=== PATIENT | female | born 1935 | race Caucasian/White ===

== ENCOUNTER 2024-07-06 13:14 | Observation (INO) ==
--- NOTE | 2024-07-06 13:59 | XRay Report ---
XR chest 1V portable CLINICAL HISTORY: Syncope. COMPARISON STUDY: Chest radiograph May 09, 2013. FINDINGS: Left shoulder arthroplasty is incidentally noted. There is no pneumothorax or pleural effus ion. There is moderate cardiomegaly and a large hiatal hernia. There is no radiographic evidence for pulmonary edema. Linear bibasilar densities favor atelectasis. There are several old right-sided rib fractures. IMPRESSION: 1. Cardiomegaly without radiographic evidence for pulmonary edema. 2. No pneumothorax. 3. Large hiatal hernia. ACT 112: Negative or not required by law. Electronically signed by: Ayan Clinton M.D. 07/06/2024 1:58 PM
--- NOTE | 2024-07-06 14:24 | Emergency Department Note ---
Impression & Plan Syncope and collapse, Elevated brain natriuretic peptide (BNP) level, Pulmonary edema ED Provider Note HISTORY OF PRESENT ILLNESS: Patient is an 88-year-old female presenting after her syncopal episodes. Patient was touring apartments at [facility] when she reportedly felt like she was very hot and felt like she had to sit down. It was a new apartment so there was no furniture in the room so the family tried to find a chair and then the patient ended up passing out. Family reports they caught her and lowered her to the ground. Reports that she came to immediately. States that they called 911. Reports the patient was alert during the week for EMS to get there. States that when EMS got her into the chair, the patient took "a loud gasp and her back arched and it seemed like she had a seizure." Reports this episode lasted for about 15 seconds. Patient reportedly has had syncopal episodes in the past. She is on Eliquis for history of A-fib. Denies any DVT, but reports history of PE. She denies any history of cardiac stents. She denies any chest pain or shortness of breath prior to the syncopal episode. On arrival to the ER, the patient reports feeling her normal self. Denies any recent fevers. Denies abdominal pain, nausea or vomiting. Denies any dysuria or hematuria. Patient denies any recent falls or head injuries. Denies any headache, changes vision, numbness or tingling or weakness in her extremities. ROS: as above PHYSICAL EXAM: Constitutional: Patient appears in no acute distress. HENT: Head: Normocephalic and atraumatic. Eyes: EOMI, PERRL Mouth/Throat: Mucous membranes moist. Neck: Trachea midline. Neck supple. Cardiovascular: RRR, No murmurs, rubs or gallops. Intact distal pulses. Pulmonary/Chest: No respiratory distress. Breath sounds clear and equal bilaterally. No wheezes or rales. Abdominal: Abdomen soft, no tenderness, rebound or guarding. Musculoskeletal: No edema, tenderness or deformity noted. Skin: Warm and dry. No rash, erythema, pallor or cyanosis Psychiatric: Appropriate mood and affect for situation. Neurological: Alert and keenly responsive. Facies symmetric. Able to raise eyebrows, close eyes, smile, puff mouth, stick out tongue, move tongue left and right and raise palate symmetrically. Able to shrug shoulders. PERRLA. SILT to forehead below eye and at jawline. Can hear soft noise bilaterally. Strength 5/5 in bilateral upper and lower extremities. SILT throughout bilateral upper and lower extremities. MDM: - Vitals signs showed bradycardia - History obtained via patient. History as above. - Chronic conditions affecting care: HTN; HLD; PE; Afib - Differential diagnoses include, but are not limited to: dysrhythmia; electrolyte abnormality; ACS; pneumonia; CVA; intracranial hemorrhage - Order placed for continuous cardiac monitoring. At this time, monitor showed rate of 54 bpm with normal sinus rhythm, per my interpretation. - External medical records reviewed. - EKG interpreted by myself showed normal sinus rhythm. Rate bradycardic at 48 bpm. QT 538. No acute ischemic changes. - Laboratory workup interpreted by myself showed normal WBC; normal PT/INR; stable electrolytes; normal troponin; elevated BNP (174); normal lipase; normal TSH - CXR showed pulmonary edema, per my interpretation. - CT head wo contrast negative for acute pathology - Discussion was had with patient case coordinator about patient's case and need for admission - Hospitalist, Dr. Sebastian, consulted for admission - [facility] and [facility]. ASSESSMENT AND PLAN: Diagnosis: syncope and collapse; elevated BNP; pulmonary edema Plan: admit Past Med/Surg History Problem List (Updated 07/06/24 @ 16:14 by Debbie Fajardo MD) Pulmonary edema (Acute) Elevated brain natriuretic peptide (BNP) level (Acute) Syncope and collapse (Acute) Social History Smoking Status: Former smoker Preferred Language: Lithuanian Feels Safe at Home: Yes Allergies Allergies Allergy/AdvReac Type Severity Reaction Status Date / Time No Known Allergies Allergy Unverified 05/09/13 06:17 Home Meds Home Medications Medication Instructions Recorded Confirmed alendronate 70 mg tablet (Fosamax) 70 mg PO WK 07/06/24 07/06/24 apixaban 2.5 mg tablet (Eliquis) 2.5 mg PO BID 07/06/24 07/06/24 atorvastatin 40 mg tablet 40 mg PO HS 07/06/24 07/06/24 donepezil 10 mg tablet 10 mg PO HS 07/06/24 07/06/24 hydrochlorothiazide 12.5 mg capsule 12.5 mg PO DAILY 07/06/24 07/06/24 levothyroxine 100 mcg tablet 100 mcg PO DIRECTED 07/06/24 07/06/24 levothyroxine 50 mcg tablet 50 mcg PO DIRECTED 07/06/24 07/06/24 Results & Data (ED) Vital Signs Vital Signs - 24 hr 07/06/24 13:46 07/06/24 14:02 07/06/24 14:26 Temperature 36.3 C L Temperature Source Temporal Artery Scan Pulse Rate - Lying Pulse Rate - Sitting Pulse Rate - Standing Pulse Rate 52 L 75 Pulse Rhythm Regular Pulse Strength Normal Respiratory Rate 18 Respiratory Effort / Characteristics Non-Labored Respiratory Depth Normal Respiratory Pattern Regular Blood Pressure - Lying Blood Pressure - Sitting Blood Pressure- Standing Blood Pressure 132/70 Blood Pressure Mean 90 Blood Pressure Position Lying Pulse Oximetry 100 Oxygen Delivery Method Room Air Sepsis Recent Fever Within 48 Hours No Sepsis New/Unexplained Change in Mental Status N/A Sepsis Action Taken by Nursing No Action Required 07/06/24 15:21 07/06/24 15:21 07/06/24 15:32 Temperature Temperature Source Pulse Rate - Lying 71 Pulse Rate - Sitting 84 Pulse Rate - Standing 109 H Pulse Rate 64 Pulse Rhythm Irregular Pulse Strength Respiratory Rate 16 Respiratory Effort / Characteristics Respiratory Depth Respiratory Pattern Blood Pressure - Lying 122/44 L Blood Pressure - Sitting 121/83 Blood Pressure- Standing 113/91 Blood Pressure Blood Pressure Mean Blood Pressure Position Pulse Oximetry 99 99 Oxygen Delivery Method Room Air Room Air Sepsis Recent Fever Within 48 Hours Sepsis New/Unexplained Change in Mental Status Sepsis Action Taken by Nursing Laboratory Data 07/06/24 14:00 07/06/24 14:00 Lab Results 07/06/24 Range/Units 14:00 WBC 6.12 (4.8-10.8) K/ul RBC 4.67 (4.20-5.40) M/uL Hgb 13.4 (12.0-16.0) g/dl Hct 41.4 (37.0-47.0) % MCV 88.7 (80.0-100.0) fL MCH 28.7 (25.0-34.0) pg MCHC 32.4 (32.0-36.0) g/dL RDW Std Deviation 42.6 (36.4-46.3) fL RDW Coeff of Hector 13.2 (11.5-14.5) % Plt Count 143 (130-400) K/uL MPV 11.1 (9.4-12.4) fL Immature Gran % (Auto) 0.2 % Neut % (Auto) 66.3 % Lymph % (Auto) 27.5 % [place] % (Auto) 5.2 % Eos % (Auto) 0.5 % Baso % (Auto) 0.3 % Neut # (Auto) 4.06 (1.40-6.50) K/uL Lymph # (Auto) 1.68 (1.20-3.40) K/uL [place] # (Auto) 0.32 (0.11-0.59) K/uL Eos # (Auto) 0.03 (0.00-0.50) K/uL Baso # (Auto) 0.02 (0.00-0.20) K/uL Immature Gran # (Auto) 0.01 (0.01-0.20) K/uL PT 11.8 (9.0-12.0) Seconds INR 1.1 (0.9-1.1) Sodium 143 (136-145) mmol/L Potassium 3.8 (3.5-5.1) mmol/L Chloride 106 (98-107) mmol/L Carbon Dioxide 27 (21-32) mmol/L Anion Gap 10 (3-11) BUN 24 H (6-23) mg/dl Creatinine 0.88 (0.6-1.2) mg/dl Est Cr Clr Drug Dosing 38.9 ml/min eGFR 63.57 BUN/Creatinine Ratio 27.3 H (10-20) Glucose 157 H (70-99(Fasting)) mg/dl Calcium 8.9 (8.6-10.3) mg/dl Magnesium 1.7 (1.7-2.4) mg/dl Total Bilirubin 0.6 (0.2-1.0) mg/dl AST 21 (13-39) U/L ALT 18 (7-52) U/L Alkaline Phosphatase 106 H (34-104) U/L Troponin I High Sens 6.4 (0-14) pg/ml B-Natriuretic Peptide 174 H (0-100) pg/ml Total Protein 6.4 (6.0-8.3) gm/dl Albumin 3.8 (3.4-5.0) gm/dl Globulin 2.6 (2.5-4.0) gm/dl Albumin/Globulin Ratio 1.5 (0.9-2) Lipase 23 (11-82) U/L TSH 3.672 (0.300-4.500) uIu/ml Imaging Data Radiologist's Impression: Chest X-Ray 07/06/24 13:27 XR chest 1V portable CLINICAL HISTORY: Syncope. COMPARISON STUDY: Chest radiograph May 09, 2013. FINDINGS: Left shoulder arthroplasty is incidentally noted. There is no pneumothorax or pleural effusion. There is moderate cardiomegaly and a large hiatal hernia. There is no radiographic evidence for pulmonary edema. Linear bibasilar densities favor atelectasis. There are several old right-sided rib fractures. IMPRESSION: 1. Cardiomegaly without radiographic evidence for pulmonary edema. 2. No pneumothorax. 3. Large hiatal hernia. ACT 112: Negative or not required by law. Electronically signed by: Ayan Clinton M.D. 07/06/2024 1:[address] 07/06/24 14:21 EXAM:CT Head Without Intravenous Contrast INDICATION: Syncope TECHNIQUE: Axial computed tomography images of the head/brain without intravenous contrast. Sagittal and/or coronal reformats are provided. Sagittal and coronal reformatted images were created and reviewed. This CT exam was performed using one or more of the following dose reduction techniques: automated exposure control, adjustment of the mA and/or kV according to patient size, and/or use of iterative reconstruction technique. COMPARISON: No relevant prior studies available. FINDINGS: Limitations: None. Brain and extra-axial spaces: There is age appropriate cortical atrophy and chronic ischemic periventricular white matter hypodensity. No acute infarct, hemorrhage or mass noted. Bones/joints: No acute changes. Soft tissues: No significant abnormality noted. Vasculature: There is minimal atherosclerotic plaque in the intracranial vertebral and carotid arteries. Sinuses: No layering fluid in the visualized portions of the paranasal sinuses. Mastoid air cells: No mastoid effusion. Orbits: No significant abnormality noted. IMPRESSION: Cerebral atrophy. No acute changes. ACT 112: Negative or not required by law. Electronically signed by Khushi Jane 07-06-2024 3:44 PM Discharge Plan Visit Data Chief Complaint: Syncope Stated Complaint: SYNCOPE ED Provider: Debbie Fajardo Discharge Problem: Syncope and collapse, Elevated brain natriuretic peptide (BNP) level, Pulmonary edema Forms Stand Alone Forms: My [facility] Prescriptions Prescriptions: No Action atorvastatin 40 mg Tablet 40 mg PO HS donepezil 10 mg Tablet 10 mg PO HS alendronate [Fosamax] 70 mg Tablet 70 mg PO WK levothyroxine 100 mcg Tablet 100 mcg PO DIRECTED Rx Instructions: everyday but sundays levothyroxine 50 mcg Tablet 50 mcg PO DIRECTED Rx Instructions: Sundays hydrochlorothiazide 12.5 mg Capsule 12.5 mg PO DAILY Eliquis 2.5 mg Tablet 2.5 mg PO BID Referrals Referrals: PCP,NO [Primary Care Provider] -
[2024-07-06 14:26] LABS: Basophils # (auto) 0.02 K/uL (0.00-0.20); Basophils % (auto) 0.3 %; Eosinophils # (auto) 0.03 K/uL (0.00-0.50); Eosinophils % (auto) 0.5 %; Hematocrit (blood only) 41.4 % (37.0-47.0); Hemoglobin 13.4 g/dl (12.0-16.0); Immature Granulocytes # (auto) 0.01 K/uL (0.01-0.20); Immature Granulocytes % (auto) 0.2 %; Lymphocytes # (auto) 1.68 K/uL (1.20-3.40); Lymphocytes % (auto) 27.5 %; Mean Corpuscular Hemoglobin 28.7 pg (25.0-34.0); Mean Corpuscular Hgb Conc 32.4 g/dL (32.0-36.0); Mean Corpuscular Volume 88.7 fL (80.0-100.0); Mean Platelet Volume 11.1 fL (9.4-12.4); Monocytes # (auto) 0.32 K/uL (0.11-0.59); Monocytes % (auto) 5.2 %; Neutrophils # (auto) 4.06 K/uL (1.40-6.50); Neutrophils % (auto) 66.3 %; Platelet Count 143 K/uL (130-400); RDW Coefficient of Variation 13.2 % (11.5-14.5); RDW Standard Deviation 42.6 fL (36.4-46.3); Red Blood Count 4.67 M/uL (4.20-5.40); White Blood Count 6.12 K/ul (4.8-10.8)
[2024-07-06 14:40] LABS: Albumin Globulin Ratio 1.5 (0.9-2); Albumin Level 3.8 gm/dl (3.4-5.0); BUN Creatinine Ratio 27.3 (10-20); Bilirubin,Total 0.6 mg/dl (0.2-1.0); Calcium 8.9 mg/dl (8.6-10.3); Creatinine Clr Calc Pharmacy 38.9 ml/min; Globulin 2.6 gm/dl (2.5-4.0); Magnesium 1.7 mg/dl (1.7-2.4); Potassium 3.8 mmol/L (3.5-5.1); Total Protein 6.4 gm/dl (6.0-8.3)
[2024-07-06 14:46] LABS: Troponin I High Sensitivity 6.4 pg/ml (0-14)
[2024-07-06 14:47] LABS: INR 1.1 (0.9-1.1); Prothrombin Time 11.8 Seconds (9.0-12.0)
[2024-07-06 14:55] LABS: Thyroid Stimulating Hormone 3.672 uIu/ml (0.300-4.500)
--- NOTE | 2024-07-06 15:44 | CT Scan Report ---
EXAM:CT Head Without Intravenous Contrast INDICATION: Syncope TECHNIQUE: Axial computed tomography images of the head/brain without intravenous contrast. Sagittal and/or coronal reformats are provided. Sagittal and coronal reformatted images were created and reviewed. This CT exam was performed using one or more of the following dose reduction techniques: automated exposure control, adjustment of the mA and/or kV according to patient size, and/or use of iterative reconstruction technique. COMPARISON: No relevant prior studies available. FINDINGS: Limitations: None. Brain and extra-axial spaces: There is age appropriate cortical atrophy and chronic ischemic periventricular white matter hypodensity. No acute infarct, hemorrhage or mass noted. Bones/joints: No acute changes. Soft tissues: No significant abnormality noted. Vasculature: There is minimal atherosclerotic plaque in the intracranial vertebral and carotid arteries. Sinuses: No layering fluid in the visualized portions of the paranasal sinuses. Mastoid air cells: No mastoid effusion. Orbits: No significant abnormality noted. IMPRESSION: Cerebral atrophy. No acute changes. ACT 112: Negative or not required by law. Electronically signed by Khushi Jane 07-06-2024 3:44 PM
--- NOTE | 2024-07-06 16:50 | History & Physical Report ---
Date of Service July 06, 2024 Assessment & Plan (1) Syncope and collapse: Plan: Patient with syncopal episode while touring apartment (standing for long period of time) with 15 second head jerking movements, recent poor PO intake secondary to delayed orthostatic hypotension - EKG showed Sinus bradycardia, HR 48 - Lactate, prolactin, and troponin negative - CT head negative - orthostatic VS confirmed mild orthostatic hypotension - likely secondary to dehydration - will promote PO fluids - Monitor on telemetry overnight questionable seizure: given history, Negative lactate, and negative prolactin - will defer seizure workup at this time. (2) Dehydration: Plan: patient with poor p.o. intake and syncopal episode - BUN/Cr elevated on admission (27.3) - promote oral fluid intake (3) Elevated brain natriuretic peptide (BNP) level: Plan: patient denies history of CHF - BNP mildly elevated at 174 - CXR showed cardiomegaly but no pulmonary edema - monitor on telemetry although likely nonspecific and nonconcerning at this time (4) Paroxysmal atrial fibrillation: Plan: patient with history of paroxysmal A-fib on Eliquis - EKG on admission showed sinus bradycardia - continue home Eliquis - Monitor on telemetry Plan Chronic stable diagnoses: HLD - continue statin hypothyroidism - continue home levothyroxine; TSH WNL on admission chronic edema - continue home HCTZ VTE ppx: SCDS Diet: heart heathy Code status: DNR/DNI Dispo: Med/tele Admission and Anticipated Discharge Date Admission Date: 07/06/24 History of Present Illness Chief Complaint: Syncope Primary Care Provider: NO PCP Patient is a 88 -year-old female with a past medical history of A-fib on Eliquis, hypothyroidism, hyperlipidemia, LE edema. She presents today after a syncopal episode while touring [employer]. As per the patient's family she only had orange juice into "sticky's'' for breakfast. She then went straight to this apartment tour in which she was standing up and walking around for about an hour. She had on multiple layers including a turn on a, sweater, and when her jacket. She then began to feel hot, they were touring an empty apartment so there were no chairs around. When her son went to look for a chair he came back and she had collapsed and her [id number]'s arms. They slowly lowered her to the floor, no head trauma. They stated that she felt cool and clammy at this time. When they tried to sit her back up she had a 15-second episode where her head was shaking, but no flailing. Her family stated that this has happened in the past whenever she was stressed. The patient stated that she only drinks 2 small bottles of water a day, with a a lot of soda. She feels that she should probably drink more water. She has had syncopal episodes in the past due to dehydration. She denies feeling heart palpitations, dyspnea, chest pain prior to the syncopal episode. She denies history of previous seizure like activity. Patient endorses lower extremity edema, chronic, takes hydrochlorothiazide at home. Patient denies fever, chills, headache, dizziness, lightheadedness, vision changes, dyspnea, dyspnea on exertion, chest pain, abdominal pain, nausea, vomiting, diarrhea, numbness, tingling. Patient currently resides near [place], [place], she was touring [facility] to be closer to family. She has a wonderful support system and family to check in on her frequently. She denies current nicotine or chronic alcohol use. She lives at home with her . She denies past history of diabetes, VTE, current cancer. She does not use oxygen at baseline. She has a DNR/DNI status. Patient and her family updated at bedside regarding current medical condition and treatment plan. The patient was discussed with Dr. Sebastian at the time of the admission/consult. Allergies Allergy/AdvReac Type Severity Reaction Status Date / Time No Known Allergies Allergy Unverified 05/09/13 06:17 Home Medications Medication Instructions Recorded Confirmed Type alendronate 70 mg tablet (Fosamax) 70 mg PO WK 07/06/24 07/06/24 History apixaban 2.5 mg tablet (Eliquis) 2.5 mg PO BID 07/06/24 07/06/24 History atorvastatin 40 mg tablet 40 mg PO HS 07/06/24 07/06/24 History donepezil 10 mg tablet 10 mg PO HS 07/06/24 07/06/24 History hydrochlorothiazide 12.5 mg capsule 12.5 mg PO DAILY 07/06/24 07/06/24 History levothyroxine 100 mcg tablet 100 mcg PO DIRECTED 07/06/24 07/06/24 History levothyroxine 50 mcg tablet 50 mcg PO DIRECTED 07/06/24 07/06/24 History Past Med/Surg History Problem List (Updated 07/06/24 @ 17:13 by Clementina Nelson PA-C) Paroxysmal atrial fibrillation Dehydration Pulmonary edema (Acute) Elevated brain natriuretic peptide (BNP) level (Acute) Syncope and collapse (Acute) Social History Smoking Status: Former smoker Preferred Language: Paraguayan Feels Safe at Home: Yes Review of Systems Review of Systems: see HPI Physical Exam Physical Exam: The patient is awake, alert and oriented 3, well developed and well nourished, normocephalic and atraumatic, in no acute distress. Non-toxic appearing. HEENT- EOMI, mucous membranes dry. Hearing grossly intact. Heart-normal S1 and S2. No murmurs, rubs or gallops. Lungs-clear bilaterally, no respiratory distress, no accessory muscle use. Abdomen-normal bowel sounds and soft. No ascites noted. Non-tender. Extremities- no clubbing, cyanosis, or edema. Rheumatologic-normal range of motion. Psychiatric-normal affect. Results & Data Results & Data Vital Signs (Past 12 Hours) Vital Signs Temp Pulse Pulse Resp BP BP Pulse Ox 07/06/24 16:00 76 16 114/75 97 07/06/24 15:21 99 07/06/24 15:21 64 16 99 07/06/24 14:26 75 07/06/24 14:02 36.3 C L 07/06/24 13:46 52 L 18 132/70 100 O2 Del Method 07/06/24 16:00 Room Air 07/06/24 15:21 Room Air 07/06/24 15:21 Room Air 07/06/24 14:26 07/06/24 14:02 07/06/24 13:46 Room Air Code Status & VTE Plan Code Status DNR/DNI VTE Prophylaxis Plan VTE Prophylaxis will be ordered: Yes Supervising Physician Co-Signing Physician Notes Patient seen and examined, chart reviewed, case discussed with Clementina Nelson PA-C and I agree with the assessment and plan as above except as otherwise noted Labs and images reviewed Minimal PO intake, was standing at [employer] with 3 sweaters on today when she got lightheaded and dizzy and passed out. Head tilted back prior to when she has had prior syncope from dehydration. No pulm edema. Do not suspect this was seizure. Lactate and Pro-Brian are negative. Suspect that patient had an episode of syncope due to volume contraction and standing for prolonged period of time, do not see evidence of cardiogenic syncope or seizure. Patient is clinically improving with hydration. Did offer return home however patient does not feel comfortable with this at time of evening assessment and would like to be monitored overnight and did have a transient episode of borderline bradycardia while resting although with appropriate chronotropic response. Troponin is normal. Oral fluids encouraged, and work with PT OT and anticipate discharge in the morning. Agree with above. PG Care Time/CCT Total # of Minutes Spent Total Time Spent with Patient: Total time spent is greater than 50% in coordination of care (as documented) at patient's floor/unit and/or counseling patient: Coding Level of Care Code 62345 INT INP/OBS CARE 2/55MIN Diagnoses Syncope and collapse R55 Dehydration E86.0 Elevated brain natriuretic peptide (BNP) level R79.89 Paroxysmal atrial fibrillation I48.0
[2024-07-06] MEDS ORDERED: ACETAMINOPHEN 325 MG TAB PO PRN (18:43)
[2024-07-06] MEDS ORDERED: POLYETHYLENE (MIRALAX) 17 GM PACK PO PRN (18:43)
[2024-07-06 19:44] VITALS: RESP 18
[2024-07-06 20:56] LABS: Appearance Urine Cloudy (Clear); Bacteria Urine Automated 2+ (None Seen); Bilirubin Urine Negative (Negative); Blood Urine Negative (Negative); Color Urine Yellow; Glucose Urine UA Negative (Negative); Ketones Urine Trace (Negative); Leukocyte Esterase Urine 3+ (Negative); Nitrite Urine Negative (Negative); Protein Urine Trace (Negative); Specific Gravity Urine 1.022 (1.000-1.030); Urobilinogen Urine Negative (Negative); WBC Urine Automated >50 /hpf (0-5)
[2024-07-06] MEDS: DONEPEZIL HCL 10 MG TAB PO SCH (21:11)
[2024-07-06] MEDS: APIXABAN 2.5 MG TAB PO SCH (21:11)
[2024-07-06] MEDS: ATORVASTATIN 40 MG TAB PO SCH (21:11)
[2024-07-06] MEDS: SODIUM CHLORIDE 0.9% 500 ML IV ONE (21:52)
[2024-07-07] MEDS: LEVOTHYROXINE SODIUM 100 MCG TABLET PO SCH (05:48)
[2024-07-07 06:31] LABS: Hematocrit (blood only) 32.9 % (37.0-47.0); Hemoglobin 10.8 g/dl (12.0-16.0); Mean Corpuscular Hemoglobin 28.4 pg (25.0-34.0); Mean Corpuscular Hgb Conc 32.8 g/dL (32.0-36.0); Mean Corpuscular Volume 86.6 fL (80.0-100.0); Mean Platelet Volume 11.2 fL (9.4-12.4); Platelet Count 129 K/uL (130-400); White Blood Count 6.67 K/ul (4.8-10.8)
[2024-07-07 06:35] LABS: BUN Creatinine Ratio 26.6 (10-20); Creatinine Clr Calc Pharmacy 43.3 ml/min; Magnesium 1.7 mg/dl (1.7-2.4); Potassium 3.4 mmol/L (3.5-5.1)
[2024-07-07] MEDS: hydroCHLOROthiazide 25 MG TAB PO SCH (07:54)
[2024-07-07] MEDS: POTASSIUM CHLORIDE CRTAB 20 MEQ TABCR PO STA (08:20)
[2024-07-07] MEDS: SODIUM CHLORIDE 0.9% 500 ML IV ONE (11:42)
--- NOTE | 2024-07-07 16:05 | Hospitalist Progress Note ---
Date of Service July 07, 2024 Assessment & Plan (1) Syncope and collapse: Plan: Patient with syncopal episode while touring apartment (standing for long period of time) with 15 second head jerking movements, recent poor PO intake secondary to delayed orthostatic hypotension - EKG showed Sinus bradycardia, HR 48 - Lactate, prolactin, and troponin negative -CBC reviewed 07/07: stable. hgb drop to 10.8, likely dilutional from bolus in ER on 07/06 -BMP reviewed 07/07: K 3.4, creatinine 0.79, BUN 21. s/p 20meq PO potassium. -Urinalysis +, UC pending. defer abx until UC results given patient asymptomatic. - CT head negative - orthostatic VS confirmed mild orthostatic hypotension - likely secondary to dehydration - will promote PO fluids - s/p 500ml bolus 07/07 due to persistent hypotension. BP 88/41 with improvement to 108/61 following bolus. -plan for 1L NSS overnight -PT evaluated - patient safe to return home w/ family support questionable seizure: given history, Negative lactate, and negative prolactin - will defer seizure workup at this time. AM CBC, BMP. (2) Dehydration: Plan: patient with poor p.o. intake and syncopal episode - BUN/Cr elevated on admission (27.3) - promote oral fluid intake (3) Elevated brain natriuretic peptide (BNP) level: Plan: patient denies history of CHF - BNP mildly elevated at 174 - CXR showed cardiomegaly but no pulmonary edema - Echo pending. (4) Paroxysmal atrial fibrillation: Plan: patient with history of paroxysmal A-fib on Eliquis - EKG on admission showed sinus bradycardia - continue home Eliquis - Monitor on telemetry Plan Chronic stable diagnoses: HLD - continue statin hypothyroidism - continue home levothyroxine; TSH WNL on admission chronic edema - continue home HCTZ VTE ppx: SCDS, Home Eliquis. Diet: heart heathy Code status: DNR/DNI Dispo: Med/tele, anticipate discharge 07/07. Updated son at bedside 07/07. Admission and Anticipated Discharge Date Admission Date: July 06, 2024 Subjective Patient seen and examined this morning and afternoon. son at bedside in PM. Patient reports to be feeling okay today. Denies any symptoms. States she is on HCTZ for lower extremity edema. states she has tried compression stockings in past but unsure why she stopped using them. Physical Exam 2 Constitutional: WD/WN, vitals as above Eyes: PERRL, conjunctivae normal, anicteric sclerae Respiratory: normal respiratory effort, lungs clear to auscultation Cardiovascular: RRR, no murmur, no edema Psychiatric: A+Ox3, euthymic affect Results & Data Results & Data Vital Signs (Past 12 Hours) Vital Signs Temp Pulse Pulse Resp BP BP Pulse Ox 07/07/24 15:52 36.3 C L 62 18 108/61 95 07/07/24 10:59 36.8 C 71 18 88/51 L 95 07/07/24 08:16 67 07/07/24 07:29 07/07/24 07:23 36.9 C 81 18 90/44 L 94 O2 Del Method 07/07/24 15:52 Room Air 07/07/24 10:59 Room Air 07/07/24 08:16 07/07/24 07:29 Room Air 07/07/24 07:23 Room Air Laboratory Results 07/07/24 05:36 07/07/24 05:36 PG Care Time/CCT Total # of Minutes Spent Total Time Spent with Patient: Total time spent is greater than 50% in coordination of care (as documented) at patient's floor/unit and/or counseling patient: Coding Level of Care Code 67391 SUB INP/OBS CARE 2/35MIN Diagnoses Syncope and collapse R55 Dehydration E86.0 Elevated brain natriuretic peptide (BNP) level R79.89 Paroxysmal atrial fibrillation I48.0
[2024-07-07] MEDS: SODIUM CHLORIDE 0.9% 1,000 ML IV SCH (16:11)
[2024-07-08 04:19] VITALS: TEMP 97.5
[2024-07-08 06:43] LABS: Hemoglobin 12.2 g/dl (12.0-16.0); Mean Corpuscular Hemoglobin 28.8 pg (25.0-34.0); Mean Corpuscular Volume 87.5 fL (80.0-100.0); Mean Platelet Volume 11.4 fL (9.4-12.4); Platelet Count 131 K/uL (130-400); RDW Coefficient of Variation 13.2 % (11.5-14.5); RDW Standard Deviation 41.5 fL (36.4-46.3); Red Blood Count 4.23 M/uL (4.20-5.40); White Blood Count 6.41 K/ul (4.8-10.8)
[2024-07-08 06:56] LABS: BUN Creatinine Ratio 19.5 (10-20); Calcium 8.4 mg/dl (8.6-10.3); Creatinine Clr Calc Pharmacy 44.4 ml/min; Potassium 3.7 mmol/L (3.5-5.1)
[2024-07-08 07:40] VITALS: PULSE 84; O2SAT 93
[2024-07-08 09:47] VITALS: BP 109/55
--- NOTE | 2024-07-08 09:57 | Discharge Summary ---
Discharge Summary Date of Service July 08, 2024 Principal Dx & Hospital Course #1 = Principal Diagnosis (1) Syncope and collapse: Patient with syncopal episode while touring apartment (standing for long period of time) with 15 second head jerking movements, recent poor PO intake secondary to delayed orthostatic hypotension - EKG showed Sinus bradycardia, HR 48 - Lactate, prolactin, and troponin negative -CBC reviewed 07/08: stable. -BMP reviewed 07/08:stable -Urinalysis +, UC pending. likely asymptomatic bacteruria. Defer abx unless patient develops symptoms. - CT head negative - orthostatic VS confirmed mild orthostatic hypotension - likely secondary to dehydration - will promote PO fluids - s/p 500ml bolus 07/07 due to persistent hypotension. BP 88/41 with improvement to 108/61 following bolus. -s/p 1L NSS w/ improvement of BP to normotensive range. -PT evaluated - patient safe to return home w/ family support questionable seizure: given history, Negative lactate, and negative prolactin - will defer seizure workup at this time. HCTZ stopped on discharge as this can also contribute to dehydration/hypotension and patient has poor PO fluid intake at baseline. patient encouraged to elevate legs to relieve LE edema. - minimal edema on examination. (2) Dehydration: patient with poor p.o. intake and syncopal episode - BUN/Cr elevated on admission (27.3) corrected prior to discharge. - promote oral fluid intake (3) Elevated brain natriuretic peptide (BNP) level: patient denies history of CHF - BNP mildly elevated at 174 - CXR showed cardiomegaly but no pulmonary edema - Echo results pending. -Patient w/o chest pain or shortness of breath. (4) Paroxysmal atrial fibrillation: patient with history of paroxysmal A-fib on Eliquis - EKG on admission showed sinus bradycardia - continue home Eliquis Plan Chronic stable diagnoses: HLD - continue statin hypothyroidism - continue home levothyroxine; TSH WNL on admission Updated son with discharge instructions 07/08. Admission HPI Per Admitting Provider Patient is a 88 -year-old female with a past medical history of A-fib on Eliquis, hypothyroidism, hyperlipidemia, LE edema. She presents today after a syncopal episode while touring [employer]. As per the patient's family she only had orange juice into "sticky's'' for breakfast. She then went straight to this apartment tour in which she was standing up and walking around for about an hour. She had on multiple layers including a turn on a, sweater, and when her jacket. She then began to feel hot, they were touring an empty apartment so there were no chairs around. When her son went to look for a chair he came back and she had collapsed and her yjqajdpa-ij-smj's arms. They slowly lowered her to the floor, no head trauma. They stated that she felt cool and c lammy at this time. When they tried to sit her back up she had a 15-second episode where her head was shaking, but no flailing. Her family stated that this has happened in the past whenever she was stressed. The patient stated that she only drinks 2 small bottles of water a day, with a a lot of soda. She feels that she should probably drink more water. She has had syncopal episodes in the past due to dehydration. She denies feeling heart palpitations, dyspnea, chest pain prior to the syncopal episode. She denies history of previous seizure like activity. Patient endorses lower extremity edema, chronic, takes hydrochlorothiazide at home. Patient denies fever, chills, headache, dizziness, lightheadedness, vision changes, dyspnea, dyspnea on exertion, chest pain, abdominal pain, nausea, vomiting, diarrhea, numbness, tingling. Patient currently resides near [place], [place], she was touring [facility] to be closer to family. She has a wonderful support system and fami ly to check in on her frequently. She denies current nicotine or chronic alcohol use. She lives at home with her . She denies past history of diabetes, VTE, current cancer. She does not use oxygen at baseline. She has a DNR/DNI status. Patient and her family updated at bedside regarding current medical condition and treatment plan. The patient was discussed with Dr. Sebastian at the time of the admission/consult. Discharge Exam Constitutional WD/WN, vitals as above Eyes PERRL, conjunctivae normal, anicteric sclerae Respiratory normal respiratory effort, lungs clear to auscultation Cardiovascular RRR, no murmur, no edema Psychiatric A+Ox3, euthymic affect Discharge Plan Discharge Items Patient Disposition: Home - Self-Care Reason For Visit: SYNCOPE Discharge Diagnosis: Syncope, Dehydration Activity: Resume your previous activity Non-emergency contact: Primary Care Provider Call non-emergency contact if: you have any medication questions and your symptoms worsen Follow-up/Referrals: PCP,YAN [Primary Care Provider] - Diet: Regular Addtl Attending Provider Instructions: Mrs. Stephenson, You were recently hospitalized following a syncopal episode. You were found to be dehydrated and treated adequately with fluids. Please see recommendations below regarding your discharge. 1. Please stop taking Hydrochlorothiazide. 2. Please elevated your legs to help with your lower extremity swelling. 3. Please resume the remainder of your medications. 4. Please establish with a PCP when you finalize your move to the area. 5. Please make sure you are drinking an adequate amount of water daily. 6. A urine culture is pending but given that you are asymptomatic this does not likely need treated. If you develop any worsening weakness, dizziness, lightheadedness, chest pain, or shortness of breath please report to the ER for further care. Sincerely, Agnieszka Carolina PA-C Pending Studies at Discharge: Yes Studies:: urine culture Stand-Alone Forms: My [facility] [place], Smoking Cessation Medications and DC Order Prescriptions: Continued atorvastatin 40 mg Tablet 40 mg PO HS Qty: 7 0RF donepezil 10 mg Tablet 10 mg PO HS Qty: 7 0RF alendronate [Fosamax] 70 mg Tablet 70 mg PO WK Qty: 1 0RF levothyroxine 100 mcg Tablet 100 mcg PO DIRECTED Qty: 7 0RF Rx Instructions: everyday but sundays levothyroxine 50 mcg Tablet 50 mcg PO DIRECTED Qty: 7 0RF Rx Instructions: Sundays Eliquis 2.5 mg Tablet 2.5 mg PO BID Qty: 14 0RF Discontinued hydrochlorothiazide 12.5 mg Capsule 12.5 mg PO DAILY Discharge Orders: Discharge Order (Routine); Ordered 07/08/24 Ordered By: Agnieszka Carolina Admission Data Admit Date/Time: 07/06/24 17:08 Attending Provider: Tyrell Medina Admit Provider: Simon Sebastian Primary Care Provider: PCP,NO Other Providers: Simon Sebastian Other Interventions: Discharge Summary Assessment (RN) Last Done: 07/08/24 09:46 Hospital Stay Data Consultations 07/06/24 16:11 ED Decision to Admit Stat Diagnostic Imagining Performed 07/06/24 14:21 CT head/brain wo con Stat Pending Results Patient Have Any Pending Studies at Discharge: Yes Discharge Instructions Given to Patient (Per Discharging Provider) Mrs. Stephenson, You were recently hospitalized following a syncopal episode. You were found to be dehydrated and treated adequately with fluids. Please see recommendations below regarding your discharge. 1. Please stop taking Hydrochlorothiazide. 2. Please elevated your legs to help with your lower extremity swelling. 3. Please resume the remainder of your medications. 4. Please establish with a PCP when you finalize your move to the area. 5. Please make sure you are drinking an adequate amount of water daily. 6. A urine culture is pending but given that you are asymptomatic this does not likely need treated. If you develop any worsening weakness, dizziness, lightheadedness, chest pain, or shortness of breath please report to the ER for further care. Sincerely, Agnieszka Carolina PA-C Total Time Total Time Spent Total Time Spent (In Minutes): 40 Total Time Includes: Examination of the Patient, Discharge Planning and Medication Reconciliation Coding Level of Care Code 65789 INP/OBS DISCH >30 MIN Diagnoses Syncope and collapse R55 Dehydration E86.0 Elevated brain natriuretic peptide (BNP) level R79.89 Paroxysmal atrial fibrillation I48.0
--- NOTE | 2024-07-08 14:34 | XCELERA ---
[id number] [id number]
--- NOTE | 2024-07-09 09:53 | Electrocardiogram Report ---
Test Reason : Blood Pressure : */* mmHG Vent. Rate : 48 BPM Atrial Rate : 48 BPM P-R Int : 208 ms QRS Dur : 86 ms QT Int : 538 ms P-R-T Axes : 80 18 12 degrees QTcB Int : 480 ms Sinus bradycardia Otherwise normal ECG When compared with ECG of 09-May-2013 02:26, MANUAL COMPARISON REQUIRED PREVIOUS ECG IS INCOMPATIBLE Confirmed by Tung Spivey ([id number]) on 07/09/2024 9:53:15 AM Referred By: Confirmed By: Tung Spivey
--- NOTE | 2024-07-09 10:42 | Electrocardiogram Report ---
Test Reason : Blood Pressure : */* mmHG Vent. Rate : 68 BPM Atrial Rate : 60 BPM P-R Int : 200 ms QRS Dur : 84 ms QT Int : 462 ms P-R-T Axes : 79 11 29 degrees QTcB Int : 491 ms Sinus rhythm with Premature supraventricular complexes Abnormal ECG When compared with ECG of 06-Jul-2024 13:35, (unconfirmed) Premature supraventricular complexes are now Present Confirmed by Tung Spivey ([id number]) on 07/09/2024 10:42:20 AM Referred By: NO PCP Confirmed By: Tung Spivey
[2024-07-13] MEDS ORDERED: LEVOTHYROXINE SODIUM 50 MCG TABLET PO SCH (06:30)
== END 2024-07-08 10:30 | disposition home or self-care (01) ==
LOC: ED 13:14 → 2N 13:14 → SUATTDRO 17:08 → 2N 18:18